=== PATIENT | female | born 1955 | race Caucasian/White ===

== ENCOUNTER 2018-09-18 09:39 | Outpatient (REF) | payer OTHER, SELFPAY ==
--- NOTE | 2018-09-18 09:10 | SKI_PTH ---
PATIENT: Donna Leggett LOC: N U#:[id number] AGE/SX: 63/F ROOM: RE09/18/[address]: Brody Rivas DO : 1955 BED: DIS: 09/18/2018 SPEC #: [id number] RECD: 09/18/18 18:11 STATUS: ANNABEL REGabriella #: [id number] BHAVANI: 09/18/18 09:[address]: Brody Rivas DEPT: Surgical Specimen RECD BY: Ysiel Monique ENTERED: 09/18/18 18:11 SP TYPE: TERESSA GREENE DR: Kinga Zhang MD Tissues: 1 - SKIN BIOPSY(SHAVE/PUNCH) Procedures: SKIN LEVEL 4 Comments: [id number]
== END 2018-09-18 09:59 ==
LOC: LBN 09:39
PROVIDERS: PCP Family Medicine; Visit Provider Otolaryngology Otolaryngology/Facial Plastic Surgery
DX: D22.39 Melanocytic nevi of other parts of face (principal)
CPT/HCPCS: 88305

== ENCOUNTER 2018-10-12 11:50 | Outpatient (CLI) | payer OTHER, SELFPAY ==
--- NOTE | 2018-10-12 11:30 | DI.RAD_ITS ---
SYMPTOMS/DIAGNOSIS: PAIN LT UPPER LATERAL RIBS/NEXT TO UPPER BREAST, R07.81 PA AND LATERAL CHEST AND LEFT RIBS: PA and lateral views of the chest and two additional views of the ribs were obtained. A BB marker is placed over the anterolateral lower ribs. The heart is not enlarged and the lungs are clear and well expanded. No pneumothorax or pleural effusion. No rib abnormality seen. CONCLUSION: Negative examination of the chest and ribs.
== END 2018-10-12 12:10 ==
PROVIDERS: PCP Family Medicine; Visit Provider Family Medicine
DX: R07.81 Pleurodynia (principal)
CPT/HCPCS: 71046; 71100

== ENCOUNTER 2018-12-26 00:58 | Outpatient (CLI) | payer OTHER, SELFPAY ==
--- NOTE | 2018-12-26 07:30 | DI.MAMMO_ITS ---
SYMPTOM/DIAGNOSIS: SCREENING, Z12.31 MAMMOGRAMS: Mammograms were interpreted according to the usual protocol including computer analysis with CAD system, tomosynthesis and C view imaging. Comparison with prior examinations. Breast density B. No suspicious masses or microcalcifications are seen. There is no definite evidence of malignancy. IMPRESSION: Negative mammogram. Routine screening is recommended. Category I. MQSA ASSESSMENT OF FINDINGS: Negative. Category 1. Patient will receive a letter notifying them of these results. BI-RADS category B. There are scattered areas of fibroglandular density.
== END 2018-12-26 01:18 ==
PROVIDERS: PCP Family Medicine; Visit Provider Family Medicine
DX: Z12.31 Encounter for screening mammogram for malignant neoplasm of breast (principal)
CPT/HCPCS: 77063; 77067

== ENCOUNTER 2019-12-31 01:37 | Outpatient (CLI) | payer OTHER, SELFPAY ==
--- NOTE | 2019-12-31 06:30 | DI.MAMMO_ITS ---
EXAM: MG MAMMO SCREENING CLINICAL HISTORY: screening,Z12.39 TECHNIQUE: Bilateral full field digital CC and MLO mammographic images were obtained with 3D tomosyn thesis and utilizing computer aided detection (CAD). COMPARISON: Available for comparison. FINDINGS: Masses/Architectural Distortion: None seen. Microcalcifications: No suspicious pleomorphic-type are seen. Skin Thickening/Nipple Retraction: None. IMPRESSION: 1. No significant interval change with no specific features of malignancy noted. 2. Unless there is more urgent need, screening mammography is recommended, as per [employer] guidelines. BI-RADS Category 1 - Negative Breast Density - Category B - Scattered areas of fibroglandular density A negative radiographic report should not delay biopsy if a dominant or clinically suspicious mass is present. Up to ten percent of cancers are not identified on mammography. A negative report may reinforce clinical impression. Adenosis and dense breasts may obscure an underlying neoplasm. False positive reports average 6 to 10%. Patient will receive a letter notifying them of these results.
== END 2019-12-31 01:57 ==
PROVIDERS: PCP Family Medicine; Visit Provider Family Medicine
DX: Z12.31 Encounter for screening mammogram for malignant neoplasm of breast (principal)
CPT/HCPCS: 77063; 77067

== ENCOUNTER 2020-03-20 10:43 | Outpatient (CLI) | payer OTHER, SELFPAY ==
--- NOTE | 2020-03-20 11:23 | DI.RAD_ITS ---
EXAM: XR ANKLE LT COMPLETE CLINICAL HISTORY: left ankle injury, S99.912A, PAIN TECHNIQUE: COMPARISON: No exams were available for comparison FINDINGS: Three views were obtained. There is soft tissue swelling adjacent to the lateral malleolus. There i s a probable accessory ossicle of the tip of the fibula, there is also probably a nondisplaced fibula r tip fracture. No other fracture seen involving the bones of the ankle or hindfoot. IMPRESSION: Fibular tip fracture as described above, nondisplaced. RADIATION DOSE DELIVERED: Total DLP
== END 2020-03-20 11:03 ==
PROVIDERS: PCP Family Medicine; Visit Provider Nurse Practitioner Family
DX: S82.492A Other fracture of shaft of left fibula, initial encounter for closed fracture (principal)
CPT/HCPCS: 73610

== ENCOUNTER 2020-09-03 04:32 | Outpatient (CLI) | payer OTHER, SELFPAY ==
[2020-09-03 09:33] LABS: Abs Immature Grans 0.01 10^3/uL (0.0-0.06); Absolute Basophil Count 0.13 10^3/uL (0.0-0.2); Absolute Eosinophil Count 0.24 10^3/uL (0.0-0.7); Absolute Lymphocyte Count 2.16 10^3/uL (1.2-3.4); Absolute Monocyte Count 0.52 10^3/uL (0.1-0.8); Absolute Neutrophil Count 4.74 10^3/uL (1.2-6.7); Basophils % 1.7; Eosinophils % 3.1; HCT 36.2 % (36.0-46.0); HGB 11.8 g/dL (11.2-15.7); Immature Grans % 0.1; Lymphocytes % 27.7; MCH 28.6 pg (27.0-33.0); MCHC 32.6 % (32.0-36.0); MCV 87.7 fL (80-95); MPV 10.8 fL (8.0-11.0); Monocytes % 6.7; Neutrophils % 60.7; Nucleated RBC 0 %; Platelet Count 246 10^3/uL (130-400); RBC 4.13 10^6/uL (3.93-5.22); RDW 13.2 % (11.7-14.6); RDW-SD 42.5 fL
[2020-09-03 10:19] LABS: ALT 22 U/L (14-59); AST 16 U/L (15-37); Albumin 3.8 g/dL (3.4-5.0); Alkaline Phosphatase 96 U/L (46-116); Anion Gap 9.9 mmol/L (3-11); BUN 12 mg/dL (7-18); Bilirubin, Total 0.5 mg/dL (0.2-1.0); C-Reactive Protein 0.09 mg/dL (0.0-0.3); CO2 27.1 mmol/L (21.0-32.0); CREATININE 0.7 mg/dL (0.55-1.02); Calcium 9.2 mg/dL (8.5-10.1); Chloride 102 mmol/L (98-107); Glucose 94 mg/dL (74-106); Potassium 4.2 mmol/L (3.5-5.1); Sodium 139 mmol/L (136-145); Total Protein 7.5 g/dL (6.4-8.2); Uric Acid 3.9 mg/dL (2.6-6.0)
[2020-09-03 16:32] LABS: Rheumatoid Factor <8.6 IU/mL (<12.0)
[2020-09-03 21:30] LABS: ESR 39 mm/hr (<or=30)
== END 2020-09-03 04:33 | disposition home or self-care (01) ==
LOC: LBO 04:32
PROVIDERS: PCP Family Medicine; Visit Provider Family Medicine
DX: M25.59 Pain in other specified joint (principal)
CPT/HCPCS: 36415; 80053; 85652; 84550; 85025; 86140; 86431

== ENCOUNTER 2020-09-17 01:41 | Outpatient (CLI) | payer OTHER, SELFPAY ==
--- NOTE | 2020-09-17 07:15 | DI.DEXA_ITS ---
EXAM: XR DEXA BONE DENSITY W/WO JAJA CLINICAL HISTORY: recent fx post minimal trauma/screening FOR OSTEOPOROSIS, Z13.820 TECHNIQUE: [employer] [place] C densitometer. Evaluation of the spine, left hip and left forearm. COMPARISON: No exams were available for comparison FINDINGS: The lateral view of the thoracic and lumbar spine shows no evidence of compression fractures. The flaquito ne mineral density measurements of the lumbar spine correspond to a total T-score of -2.5, in the ost eoporotic range. The bone mineral density measurements of the left hip correspond to a total T-score of -2.3 and a femoral neck T-score of -2.7, also in the osteoporotic range. The left forearm bone m ineral density measurements correspond to a T-score of the distal 3rd of -3.8, indicating osteoporosi s. IMPRESSION: Osteoporosis of the lumbar spine, left hip and left forearm.
== END 2020-09-17 02:01 ==
PROVIDERS: PCP Family Medicine; Visit Provider Family Medicine
DX: M81.0 Age-related osteoporosis without current pathological fracture (principal)
CPT/HCPCS: 77080

== ENCOUNTER 2020-10-15 04:29 | Outpatient (CLI) | payer OTHER, SELFPAY ==
[2020-10-15 09:10] LABS: ESR 5 mm//hr (0-30)
[2020-10-15 10:57] LABS: C-Reactive Protein < 0.05 mg/dL (0.0-0.3)
== END 2020-10-15 04:30 | disposition home or self-care (01) ==
LOC: LBO 04:29
PROVIDERS: PCP Family Medicine; Visit Provider Family Medicine
DX: M25.59 Pain in other specified joint (principal)
CPT/HCPCS: 36415; 85652; 86140

== ENCOUNTER 2021-01-05 01:06 | Outpatient (CLI) | payer OTHER, SELFPAY ==
--- NOTE | 2021-01-05 06:45 | DI.MAMMO_ITS ---
Exam(s) MAMMO SCREENING EXAM: MAMMO SCREENING CLINICAL HISTORY: screening,z12.39. TECHNIQUE: Bilateral full field digital CC and MLO mammographic images were obtained with 3D tomosyn thesis and utilizing computer aided detection (CAD). COMPARISON: Prior mammograms dating back to 2011, the most recent being December 2019. FINDINGS: There are no CAD designations There are no new spiculated masses nor malignant appearing microcalcification groups. There is no significant architectural distortion nor skin thickening-retraction. IMPRESSION: No radiographic evidence of malignancy. BI-RADS Category 1 - Negative Breast Density - Category B - Scattered areas of fibroglandular density Breast density Category C or D implies that the patient has dense breast tissue. Dense breast tissue can make it harder to find cancer on a mammogram. Dense breast tissue is also associated with an incr eased risk of breast cancer. This information about the result of the mammogram report was provided to the patient to raise their awareness. Use this report when you speak with the patient about their risks for breast cancer, which includes their family history. At that time, you may recommend additional screening tests (Ultrasoun d or MRI) as these tests may add significant information. A negative radiographic report should not delay biopsy if a dominant or clinically suspicious mass is present. Up to ten percent of cancers are not identified on mammography. A negative report may reinforce clinical impression. Adenosis and dense breasts may obscure an underlying neoplasm. False positive reports average 6 to 10%. Patient will receive a letter notifying them of these results.
== END 2021-01-05 01:26 ==
PROVIDERS: PCP Family Medicine; Visit Provider Family Medicine
DX: Z12.31 Encounter for screening mammogram for malignant neoplasm of breast (principal); R92.8 Other abnormal and inconclusive findings on diagnostic imaging of breast
CPT/HCPCS: 77063; 77067

== ENCOUNTER 2021-03-09 03:23 | Outpatient (CLI) | payer OTHER, SELFPAY ==
[2021-03-09 12:33] LABS: ESR 6 mm/hr (0-30)
[2021-03-09 14:02] LABS: C-Reactive Protein < 0.05 mg/dL (0.0-0.3)
[2021-03-10 09:05] LABS: Cyclic Citrullinated Peptide <2.5 U/mL (<5.0)
== END 2021-03-09 03:24 | disposition home or self-care (01) ==
LOC: LBO 03:23
PROVIDERS: PCP Family Medicine; Visit Provider Internal Medicine
DX: M35.3 Polymyalgia rheumatica (principal)
CPT/HCPCS: 36415; 85652; 86200; 86140

== ENCOUNTER 2021-05-08 02:30 | Outpatient (CLI) | payer OTHER, SELFPAY ==
[2021-05-08 11:31] LABS: Source Nasal/Nares
[2021-05-08 14:11] LABS: COVID-19 PCR Negative (Negative)
== END 2021-05-08 02:31 | disposition home or self-care (01) ==
LOC: LBO 02:30
PROVIDERS: PCP Family Medicine; Visit Provider Surgery
DX: Z20.822 Contact with and (suspected) exposure to COVID-19 (principal)
CPT/HCPCS: 87635

== ENCOUNTER 2021-05-11 08:59 | Day surgery (SDC) | payer OTHER, SELFPAY ==
--- NOTE | 2021-05-11 06:44 | W.COLOREPORT ---
Colonoscopy Report Date of procedure: 05/11/21 Pre-op diagnosis general: Colon Cancer Screening Post-op diagnosis procedure note: same Procedure: Colonoscopy Surgeon: Tierney Cat Anesthesia Type: General:No Airway (see anesthesdia record) Estimated blood loss (mL): 0 Pathology: none sent Complications: None Disposition: same day Indications: The patient is here for Colonoscopy pre-op. Her last screening was in 2010 and was unremarkable. She has no family history of colon cancer. She has not had any bowel habit changes. -Discussed colonoscopy bowel prep as well as the procedure. Discussed possible complications of the procedure to include bleeding, pain, perforation, missed small lesion/polyp, sore throat, aspiration and adverse reaction to the medications. Questions were answered to patient?s satisfaction. No guarantees were implied or given. Prep: Miralax/Dulcolax Procedure Start Time: 11:30 Procedure End Time: 11:51 Retraction Time: 9 minutes Findings: Normal colonoscopy Procedure Description: After informed consent was obtained the patient was taken to the procedure room and placed in a left decubitous position. Monitors were applied and a time out was done. The patients name, date of , procedure, allergies to medications and metal in their body was reviewed. The patient was then sedated. Once sedated and comfortable a rectal exam was done. External exam was normal. Internal exam revealed a normal sphincter tone and no palpable masses. The scope was then introduced and retro-flexed. No internal hemorrhoids, polyps or masses were identified on retro-flexion. The scope was then advanced to the cecum without difficulty. The ileocecal vlave and appendiceal orifice were identified. The prep was good. The scope was then slowly retracted over 9 minutes back into the rectum. There were no polyps. There was mild sigmoid diverticulosis noted. The scope was removed and the patient was woken up and taken back to Same day surgery in stable condition. The patient tolerated the procedure well and there were no immediate complications. Follow up: The patient should follow up as needed if they develop changes in bowel habits or other new gastrointestinal complaints.
--- NOTE | 2021-05-11 06:45 | W.PM.DSUDISC ---
Discharge Plan Disposition Patient Disposition: HOME Condition: Good Discharge Details Reason For Visit: Colonoscopy Attending Provider: Tierney Cat Primary Care Provider: Disha Rodriges Home Meds and New Rx's Prescriptions: Continued zolmitriptan 5 mg tablet 2.5 - 5 mg PO DIRECTED Qty: 9 RF: 4 alendronate 70 mg tablet 70 mg PO QWEEK Qty: 12 RF: 4 prednisone 1 mg tablet 1 mg PO DAILY RF: 0 Discharge Instructions Instructions: Diverticulosis (DC) Additional Instructions: Findings: Diverticulosis Follow up: as needed Please call if you develop: fevers >101.5 Nausea or Vomiting Abdominal pain that is not transient Rectal bleeding that is more then a tbsp A hard abdomen and inability to pass gas DAY SURGERY UNIT POST ENDOSCOPY INSTRUCTIONS Instructions for everyone who is given Anesthesia: For your safety, please do the following for the next 24 Hours: a. Do not drive or operate dangerous equipment b. Do not drink alcohol beverages or use any recreational drugs for the first 24 hours or while taking pain medications. The medications in your body may have a reaction that can be dangerous. c. Do not make any important decisions or sign any important papers 1. Generally there are no restrictions on your activity after a day or so has gone by, but you may feel a bit fatigued for a few days. 2. After you arrive home you may have a light meal and return to a normal diet as you can tolerate it without feeling sick to your stomach. 3. After surgery, you may feel pain or discomfort. This should be only transient, but if it persists please contact your doctor. 4. If there are any questions regarding the findings of your procedure, please feel free to contact your doctor. 6. If you are unable to contact your doctor with a problem, contact the hospital at [phone]. 7. Continue all your regular medications unless directed otherwise. I understand the above instructions and have no questions. Signature of Patient or Responsible Adult Escort Date/Time Name of Responsible Adult Escort Signature of Nurse Date/Time Activity:: Activity as Tolerated Diet:: high fiber Discharge Orders Discharge Orders: Discharge Order (Routine); Ordered 05/11/21 Ordered By: Tierney Cat
[2021-05-11 09:24] VITALS: BP 98/59; PULSE 95; RESP 16; TEMP 36.4; O2SAT 99
[2021-05-11] MEDS: Lactated Ringers 1,000 ML 80 ML IV ×2 (09:55→11:30)
--- NOTE | 2021-05-11 10:16 | W.ANESPRE ---
General Info Date of Service Date Performed: 05/11/21 Height: 5 ft 5.5 in Weight: 62.4 kg Body Mass Index (BMI): 22.5 Surgical Procedure: Operation Date: 05/11/21 11:05 Proposed Procedures Side Surgeon p Colonoscopy Tierney Cat MD Meds Allergies and Home Medications Allergies Allergy/AdvReac Type Severity Reaction Status Date / Time No Known Allergies Allergy Verified 05/11/21 09:30 Home Medication Medication Instructions Recorded alendronate 70 mg tablet 70 mg PO QWEEK #12 tab 10/07/20 zolmitriptan 5 mg tablet 2.5 - 5 mg PO DIRECTED #9 tab 12/03/20 prednisone 1 mg PO DAILY 05/11/21 Current Visit Medications: Current Medications Generic Name Dose Route Start Last Admin Trade Name Freq PRN Reason Stop Dose Admin Hyoscyamine Sulfate 0.125 mg 05/11/21 06:45 Hyoscyamine 0.125 Mg Sl/Oral/Chew SL DIRECTED PRN Ringer's Solution 1,000 mls @ 80 mls/hr 05/11/21 06:00 05/11/21 09:55 IV 05/12/21 23:59 80 mls/hr INFUSION NATHEN Administration IV Miscellaneous Supplies 1 each 05/11/21 06:00 Iv Access IV 05/12/21 23:59 DIRECTED NATHEN Ondansetron HCl 4 mg 05/11/21 06:45 Ondansetron 4 Mg/2 Ml Vial IVP Q4H PRN PRN Nausea / Vomiting Sodium Chloride 0 ml 05/11/21 06:00 Normal Saline Flush 10 Ml Syr IV 05/12/21 23:59 PRN PRN Sodium Chloride 0 ml 05/11/21 06:00 Normal Saline 10 Ml Vial IJ 05/12/21 23:59 DIRECTED PRN Sterile Water 0 ml 05/11/21 06:00 Water,Injection,Sterile 10 Ml Vial IJ 05/12/21 23:59 DIRECTED PRN PFSH Active Problems Active Problems: Problem Status Onset Code Rosacea L71.9 Onychomycosis B35.1 Headache R51 Atrophic vaginitis N95.2 Left ankle pain M25.572 Polyarthralgia M25.50 Osteoporosis M81.0 Urinary incontinence, mixed N39.46 PMR (polymyalgia rheumatica) M35.3 Medical History Active Problem List Rosacea (Chronic) Onychomycosis (Chronic) Headache (Chronic) Atrophic vaginitis (Chronic) Left ankle pain (Acute) Polyarthralgia (Acute) Osteoporosis (Chronic) Urinary incontinence, mixed (Acute) PMR (polymyalgia rheumatica) (Acute) Surgical History Surgical History (Updated 05/11/21 @ 09:22 by Gosia Lyles) Hx of colonoscopy Ligation of fallopian tube Tobacco Smoking/Tobacco Use Status: Former Tobacco Use Passive smoking exposure: Yes Second hand exposure: Yes Alcohol Alcohol Intake: current Alcohol intake frequency: a few times a month Alcohol type: beer and hard liquor Substance Use Substance use: Occasionally Substance use type: marijuana Details: alcohol: t-4, glass:marijuana: t-4, hit Vital Signs and Lab Results Vital Signs Most Recent Vital Signs in EMR: Most Recent Vital Signs Temp Pulse Resp BP Pulse Ox 36.4 C L 95 H 16 98/59 L 99 05/11/21 09:24 05/11/21 09:24 05/11/21 09:24 05/11/21 09:24 05/11/21 09:24 Lab Results Blood Type / Crossmatch: No Data to Display Complete Blood Count: No Data to Display Complete Metabolic Panel: No Data to Display Liver Function Panel: No Data to Display Coagulation Panel: No Data to Display Cardiac Panel: No Data to Display Arterial Blood Gas: No Data to Display Venous Blood Gas: No Data to Display Pancreas Panel: No Data to Display Thyroid Panel: No Data to Display Infectious Disease: Coronavirus (COVID-19)(PCR) Negative (Negative) 05/08/21 07:23 05/08/21 Coronavirus 2019 Source Nasal/Nares 05/08/21 07:23 05/08/21 Blood Cultures: No Data to Display Toxicology Panel: No Data to Display Anesthesia Assessment and Plan Anesthesia History Personal History: No History of Anesthesia Complications Family History: No Family History of Anesthesia Complications Exercise Tolerance Exercise Tolerance: Metabolic Equivalents>4 Pertinent Negatives Pertinent Negatives: No Symptoms of GERD, No Major Cardiovascular Symptoms or Complaints and No Major Pulmonary Symptoms or Complaints Cardiac & Pulmonary Exam Cardiac Exam: Normal S1/S2 Heart Sounds Pulmonary Exam: Clear Bilateral Breath Sounds Implantable Cardiac Device Does patient have a Pacemaker or an ICD?: No Airway Exam Known Difficult Airway: No Mallampati Class: 2 Mouth Opening: Normal (> 3cm) Thyromental Distance: Greater than 3 cm Neck Range of Motion: Full ROM Neck Circumference: Normal Teeth Condition: Normal Dentition and Removable Dentures/Plates Upper ASA Classification ASA Score: ASA 2 Emergency Case?: No NPO Status NPO Status: NPO Clears >2 hours, Solids >8 hours Anesthesia Plan Resuscitation Status: Full Code Anesthesia Technique: General Anesthesia Airway Planned: Natural Airway Monitors Used: Standard Monitors
[2021-05-11 10:18] VITALS: BMI 22.5
[2021-05-11 12:00] VITALS: BP 86/63; PULSE 69; RESP 18; TEMP 36.1; O2SAT 94
[2021-05-11 12:36] VITALS: BP 101/67; PULSE 68; RESP 16; TEMP 36.5; O2SAT 97
--- NOTE | 2021-05-11 12:45 | W.ANESPOSTOP ---
Postoperative Evaluation Date, Time and Location Date Performed: 05/11/21 Time Performed: 12:46 Patient Location: Day Surgery Unit Vital Signs Most Recent Imported Vital Signs: Most Recent Vital Signs Temp Pulse Resp BP Pulse Ox 36.5 C 68 16 101/67 97 05/11/21 12:36 05/11/21 12:36 05/11/21 12:36 05/11/21 12:36 05/11/21 12:36 Pain Score Most Recent Pain Score: Most Recent Pain Score Pain Level 0 05/11/21 12:36 Assessment Mental Status: Awake (Alert & Oriented to Patient Baseline) Airway and Respiratory Function: Patent airway with normal (patient baseline) respiratory exam Cardiovascular Function: Hemodynamically Stable Hydration Status: Adequately Hydrated Nausea & Vomiting: No Nausea or Vomiting Pain: Pt. Denies Any Pain Peripheral Nerve Block: Patient did not receive a nerve block
== END 2021-05-11 13:10 | disposition home or self-care (01) ==
LOC: SUR 08:59
PROVIDERS: PCP Family Medicine; Visit Provider Surgery
PROC: 0DJD8ZZ Inspection of Lower Intestinal Tract, Via Natural or Artificial Opening Endoscopic (ICD-10-PCS; CPT 45378; principal; 2021-05-11 11:00)
DX: Z12.11 Encounter for screening for malignant neoplasm of colon (principal); K57.30 Diverticulosis of large intestine without perforation or abscess without bleeding
CPT/HCPCS: 45378; J2001

== ENCOUNTER 2021-05-19 02:48 | Outpatient (CLI) | payer OTHER, SELFPAY ==
[2021-05-19 12:25] LABS: ESR 10 mm/hr (0-30)
[2021-05-19 13:25] LABS: C-Reactive Protein < 0.05 mg/dL (0.0-0.3)
== END 2021-05-19 02:49 | disposition home or self-care (01) ==
LOC: LBO 02:48
PROVIDERS: PCP Family Medicine; Visit Provider Internal Medicine
DX: M35.3 Polymyalgia rheumatica (principal)
CPT/HCPCS: 36415; 85652; 86140

== ENCOUNTER 2021-12-08 12:38 | Outpatient (CLI) | payer OTHER, SELFPAY ==
--- OUTSIDE RECORDS SUMMARY | 2021-12-08 13:01 | XMS_ITS | Encounter Summary ---
:1955 Author Organization [facility] Address [address] [place] [address] Care Team Providers Name Role Phone Unknown, Provider Primary Care Provider Encounter Details Date Type Department Care Team Description 02/11/2021 Lab Requisition [facility] Outr Resulting Lab, Pathology & Laboratory Provider [facility] [address] [place] [address] Social History Tobacco Use Types Packs/Day Years Used Date Never Assessed Sex Assigned at Date Recorded Not on file documented as of this encounter Plan of Treatment Not on filedocumented as of this encounter Procedures Procedure Name Priority Date/Time Associated Diagnosis Comme nts COVID-19 TEST [facility] Today 02/11/2021 7:45 EDT LAB PCR COVID-19 TESTING Routine 02/11/2021 7:45 EDT Resu lts for this procedure are i n the results section. documented in this encounter Results COVID-19 TEST [facility] LAB PCR (02/11/2021 7:45 EDT) Specimen Swab - Entire nasopharynx (body structur e) Performing Organization Address City/State/ZIP Code Phon e Number [facility] [address] [place] [address] SERVICES COVID-19 TESTING (02/11/2021 7:45 EDT) COVID-19 rt-PCR Negative Negative [facility] MED[facility] Result Comment: [facility] This test has not been FDA c leared or approved. This test has been authorized by FDA under an EUA for use by authorized laboratories. This test has been authorized only for detection of nucleic acid fro SERVICES m 2018-nCo, not for any oth er viruses or pathogens. This test is only authorized for the duration of the declaration that circumstances exist justifying the authorization of emergency use of in vitro d iagnostic tests for detectio n and/or diagnosis of 2019-nCoV under section 564(b)(1) of Act, 21 U.S.C ?? 360bbb-3(b) (1), unless the authorization is terminated or revoked sooner. Negative results do not prec lude 2019-nCoV infection and should not be used as the sole basis for treatment or other patient management decisions. Negative results must be combined with clinical observa tions, patient history, and epidemiological informatio n. Performed on the Mi[employer] Fusion instrument Performing Lab [place] [facility] Lab [facility] SERVICES Specimen Swab Performing Organization Address City/State/ZIP Code Phon e Number [facility] [address] [place] [address] SERVICES documented in this encounter Visit Diagnoses Not on filedocumented in this encounter Care Teams Political Director Relationship Specialty Start Date End Date Unknown, Provider, PCP - General 04/18/15 documented as of this encounter
--- OUTSIDE RECORDS SUMMARY | 2021-12-08 13:01 | XMS_ITS | Encounter Summary ---
:1955 Author Organization [facility] Address [address] [place] [address] Care Team Providers Name Role Phone Unknown, Provider Primary Care Provider Encounter Details Date Type Department Care Team Description 10/11/2016 Results Only [facility]- Sherry Flores MD [phone] [place] [phone] (Wo rk) Social History Tobacco Use Types Packs/Day Years Used Date Never Assessed Sex Assigned at Date Recorded Not on file documented as of this encounter Plan of Treatment Not on filedocumented as of this encounter Procedures Procedure Name Priority Date/Time Associated Diagnosis Comme nts PAP TEST- RESULT Routine 10/11/2016 0:00 EDT Resu lts for this ONLY procedure are i n the results section. documented in this encounter Results PAP TEST- RESULT ONLY (10/11/2016 0:00 EDT) Pathology Report: CYTOPATHOLOGY REPORT [facility] Reports generated via electronic interface contain yvonne ginal data; SERVICES however they are lacking the format of the original re port. Caution should be taken when reading/interpreting unfo rmatted reports. Name: ? DONNA LEGGETT ? Accession #: ? [id number] ? : ? 1955 (Age: 61 ) ??F ?Collect Date: ? 2016 ? Location: ? [facility] ? Receive Date: ? 7 ? Provider: SHERRY RIDDLE MD Copy to: ? Final Report SPECIMEN ADEQUACY ? Satisfactory for Evaluation - transformation zone component present GENERAL CATEGORIZATION ? Negative for Intraepithelial Lesion or Malignan cy ?? Specimen/Source: ??Pap Test, Cervix/Endocervix, ThinPr ep Imaging System with manual evaluation Document reviewed and electronically signed by: ? Arelis Taveras, CT(ASCP)(IAC) ? Report ??Date: 10/20/2016 11:07 HPV with Pap Test ? Date Ordered: ? 10/20/2016 ? Status: ?? Signed Out ?Date Complete: ? 10/21/2016 ? By: ??Sy stem Interface ? Date Reported: ? 10/21/2016 ? Interpretation RESULT: Negative for HPV. No E6 or E7 mRNA is detected from HPV types 16,18,31,3 3,35, 39,45,51,52,56,58,59,66, and 68 by mold shifter media zeeshan amplification. Comments Document reviewed and electronically signed by: ? System Interface ? Report date: 10/21/2016 By the signature above, the attending physician certif ies that he/she has personally conducted a gross and/or microscopic examin ation of the described specimens and rendered or confirmed the above diagnosi s. End of Report Specimen Performing Organization Address City/State/ZIP Code Phon e Number [facility] [address] [place] [address] SERVICES documented in this encounter Visit Diagnoses Not on filedocumented in this encounter Care Teams Speech Therapy Director Relationship Specialty Start Date End Date Unknown, Provider, PCP - General 04/18/15 documented as of this encounter
--- OUTSIDE RECORDS SUMMARY | 2021-12-08 13:01 | XMS_ITS | Encounter Summary ---
:[address] [facility] Address [address] [place] [address] Care Team Providers Name Role Phone Unavailable Primary Care Provider Unavailable Encounter Details Date Type Department Care Team Description 08/02/2013 Results Only [facility] Laboratory Anne Mohan am, PA Services - [place] All en [address] [address] Social History Tobacco Use Types Packs/Day Years Used Date Never Assessed Sex Assigned at Date Recorded Not on file documented as of this encounter Plan of Treatment Not on filedocumented as of this encounter Procedures Procedure Name Priority Date/Time Associated Diagnosis Comme nts PAP TEST- RESULT Routine 08/02/2013 0:00 EST Resu lts for this ONLY procedure are i n the results section. documented in this encounter Results PAP TEST- RESULT ONLY (08/02/2013 0:00 EST) Pathology Report: CYTOPATHOLOGY REPORT [facility] Reports generated via electronic interface contain yvonne ginal data; however they are lacking the format of the original re port. Caution should be taken when reading/interpreting unfo rmatted reports. Name: ? DONNA LEGGETT ? Accession #: ? [id number] ? : ? 1955 (Age: 58) ??F ?Collect Da te: ? 08/02/2013 ? Location: ? [facility] ? Receive Date: ? 014 ? Provider: JANEY RIVERA Copy to: ? Final Report SPECIMEN ADEQUACY ? Satisfactory for Evaluation - transformation zone component present GENERAL CATEGORIZATION ? Negative for Intraepithelial Lesion or Malignan cy ?? Last Menstrual Period: 5+ years Hormonal/Contraceptive status: Yes Specimen/Source: ??Pap Test, Cervix/Endocervix, ThinPr ep Imaging System with manual evaluation Document reviewed and electronically signed by: ? Teresa Dickens, [place](ASCP) ? Report ??Date: 08/09/2013 12:55 HPV with Pap Test ? Date Ordered: ? 08/09/2013 ? Status: ?? Signed Out ?Date Complete: ? 08/13/2013 ? By: ??S ystem Interface ? Date Reported: ? 08/13/2013 ? Interpretation RESULT: Negative for HPV. No E6 or E7 mRNA is detected from HPV types 16,18,31,3 3,35, 39,45,51,52,56,58,59,66, and 68 by expediter media zeeshan amplification. Comments Document reviewed and electronically signed by: ? System Interface ? Report date: 08/13/2013 By the signature above, the attending physician certif ies that he/she has personally conducted a gross and/or microscopic examin ation of the described specimens and rendered or confirmed the above diagnosi s. End of Report Specimen Performing Organization Address City/State/ZIP Code Phon e Number [facility] [address] [place] [address] SERVICES [facility] [address] [place] [address] documented in this encounter Visit Diagnoses Not on filedocumented in this encounter
--- OUTSIDE RECORDS SUMMARY | 2021-12-08 13:01 | XMS_ITS | Encounter Summary ---
:1955 Author Organization [facility] Address [address] [place] [address] Care Team Providers Name Role Phone Unknown, Provider Primary Care Provider Encounter Details Date Type Department Care Team Description 04/10/2021 Lab Requisition [facility] Outr Resulting Lab, Pathology & Laboratory Provider [facility] [address] [place] [address] Social History Tobacco Use Types Packs/Day Years Used Date Never Assessed Sex Assigned at Date Recorded Not on file documented as of this encounter Plan of Treatment Not on filedocumented as of this encounter Procedures Procedure Name Priority Date/Time Associated Diagnosis Comme nts COVID-19 TEST [facility] Today 04/10/2021 7:30 EDT LAB PCR COVID-19 TESTING Routine 04/10/2021 7:30 EDT Resu lts for this procedure are i n the results section. documented in this encounter Results COVID-19 TEST [facility] LAB PCR (04/10/2021 7:30 EDT) Specimen Swab - Entire nasopharynx (body structur e) Performing Organization Address City/State/ZIP Code Phon e Number [facility] [address] [place] [address] SERVICES COVID-19 TESTING (04/10/2021 7:30 EDT) COVID-19 rt-PCR Negative Negative [facility] Result Comment: CENTER LABORATORY [...] and epidemiological informatio n. Performed on the [employer] News[employer] Fusion instrument Performing Lab [place] [facility] Lab [facility] SERVICES Specimen Swab Performing Organization Address City/State/ZIP Code Phon e Number [facility] [address] [place] [address] SERVICES documented in this encounter Visit Diagnoses Not on filedocumented in this encounter Care Teams Bear Keeper Relationship Specialty Start Date End Date Unknown, Provider, PCP - General 04/18/15 documented as of this encounter
--- OUTSIDE RECORDS SUMMARY | 2021-12-08 13:01 | XMS_ITS | Encounter Summary ---
:1955 Author Organization [facility] [place] [address] Care Team Providers Name Role Phone Kinga Zhang MD Primary Care Provider Encounter Details Date Type Department Care Team Description 12/19/2020 Telephone [place] [facility] [place] [address] Social History Tobacco Use Types Packs/Day Years Used Date Never Smoker Smokeless Tobacco: Never Used Sex Assigned at Date Recorded Female 05/14/2021 11:47 AM EST documented as of this encounter Miscellaneous Notes Telephone Encounter - Lisa Sánchez - 12/19/2020 9:59 AM EDT LM to schedule new patient appt from referral. Graded a B- documented in this encounter Plan of Treatment Not on filedocumented as of this encounter Visit Diagnoses Not on filedocumented in this encounter Care Teams Flue Blower Relationship Specialty Start Date End Date Kinga Zhang MD PCP - General Family Medicine 09/07/[address] [place], [place] [id number] documented as of this encounter
--- OUTSIDE RECORDS SUMMARY | 2021-12-08 13:01 | XMS_ITS | Clinical Summary ---
:1955 Author Organization [facility] Address [address] [place] [address] Care Team Providers Name Role Phone Unknown, Provider Primary Care Provider Social History Tobacco Use Types Packs/Day Years Used Date Never Assessed Sex Assigned at Date Recorded Not on file Plan of Treatment Health Maintenance Due Date Last Done Comments Hepatitis C Screen 1955 COVID-19 Vaccine (1) 1965 Fall Risk Screening 2018 Care Teams Audio Video Repairer Relationship Specialty Start Date End Date Unknown, Provider, PCP - General 04/18/15
--- OUTSIDE RECORDS SUMMARY | 2021-12-08 13:01 | XMS_ITS | Clinical Summary ---
:1955 Author Organization [facility] [place] [address] Care Team Providers Name Role Phone Kinga Zhang MD Primary Care Provider Allergies No known active allergies Medications Medication Sig Dispensed Refills Start Date End Date Status alendronate (Fosamax) 70 once a week. 0 12/22/2020 Active mg Tablet predniSONE (Deltasone) 5 0 12/03/2020 Active mg Tablet ZOLMitriptan (ZOMIG) 5 0 03/04/2021 Active mg Tablet cholecalciferol, Vitamin Take 200 Units 0 Active D3, (cholecalciferol, by mouth. Vitamin D3,) 50 mcg (2,000 unit) Capsule Immunizations Name Administration Dates Next Due Pneumococcal Polyvalent 23 11/12/1999 Td, adult 02/03/2004 Tuberculin Skin Test, PPD 04/12/2005, 03/16/2004, 02/25/2003 Social History Tobacco Use Types Packs/Day Years Used Date Former Smoker Smokeless Tobacco: Never Used Sex Assigned at Date Recorded Female 05/14/2021 11:47 AM EST Last Filed Vital Signs Vital Sign Reading Time Taken Comments Blood Pressure 133/70 03/05/2021 10:39 AM EDT Pulse 74 03/05/2021 10:39 AM EDT Temperature 36.9 ??C (98.4 ??F) 03/05/2021 10:39 AM EDT Respiratory Rate - - Oxygen Saturation 100% 03/05/2021 10:39 AM EDT Inhaled Oxygen Concentration - - Weight 65.8 kg (145 lb) 03/05/2021 10:39 AM EDT Height 166.4 cm (5' 5.5) 03/05/2021 10:39 AM EDT Body Mass Index 23.76 03/05/2021 10:39 AM EDT Plan of Treatment Health Maintenance Due Date Last Done Comments Covid-19 Vaccine (#1) 1958 Hepatitis C Screening 1971 Tdap adult 01/20/1972 Breast Cancer Share Decision Needed 1993 Colonoscopy 1998 Breast Cancer screening 2003 Zoster vaccine (1 of 2) 2003 Advance Directive 01/20/2008 Tetanus vaccine 02/02/2014 02/03/2004 Bone Density Scan 2018 Pneumoccocal Vaccine: 65+ (1 - PCV) 2018 11/12/1999 Influenza (Flu) vaccine (1 of 1 - Influenza standard 02/11/2021 series) Insurance Payer Benefit Plan / Subscriber ID Effective Dates Phone Addre ss Type Group HEALTH PLANS HEALTH PLANS [id number] 2018-Myriam [phone] [id number] [place] [address] Care Teams Hydraulic Chair Assembler Relationship Specialty Start Date End Date Kinga Zhang MD PCP - General Family Medicine 09/07/[address] [place], [place] [address]
--- OUTSIDE RECORDS SUMMARY | 2021-12-08 13:01 | XMS_ITS | Encounter Summary ---
:1955 Author Organization [facility] Address [address] [place] [address] Care Team Providers Name Role Phone Unavailable Primary Care Provider Unavailable Encounter Details Date Type Department Care Team Description 02/11/2004 Results Only [facility] - Soraya Hernandez MD [employer] [address] [place] [address] [place] [address] Social History Tobacco Use Types Packs/Day Years Used Date Never Assessed Sex Assigned at Date Recorded Not on file documented as of this encounter Plan of Treatment Not on filedocumented as of this encounter Procedures Procedure Name Priority Date/Time Associated Diagnosis Comme [facility] SURGICAL PATHOLOGY Routine 02/11/2004 0:00 EDT Re sults for this procedure are i n the results section. documented in this encounter Results SURGICAL PATHOLOGY (02/11/2004 0:00 EDT) Pathology Report: SURGICAL PATHOLOGY REPORT [facility] Reports generated via electronic interface contain yvonne ginal data; LAB however they are lacking the format of the original re port. Caution should be taken when reading/interpreting unfo rmatted reports. Name: ? DONNA LEGGETT ? Accession #: ? [id number] ? : ? 1955 (Age: 49) ??F ? Collect Date: ? 02/11/2004 ? Location: ? [facility] ? Receive Date: ? 004 ? Provider: ESTRELLA HERNANDEZ MD Copy to: JANEY RIVERA ? Final Pathologic Diagnosis: ? Endocervical, polyp, biopsy: - Benign endocervical polyp. Document reviewed and electronically signed by: Ike Moon MD Report ??Date: 02/12/2004 13:10 By the signature above, the attending physician certif ies that he/she has personally conducted a gross and/or microscopic examin ation of the described specimens and rendered or confirmed the above diagnosi s. Specimen(s) Received: ? Endocervical polyp Clinical History: ? Endocervical polyp Gross Description: ? Received in formalin labelled Oleksandr and end ocervical polyp is a torres-red polypoid 1.2 x 1.0 x 0.4 cm soft tissue. ??There is a minimal amount of attached mucinous material. ??The specimen is entirely submitted in one cassette. /[facility] End of Report Specimen Performing Organization Address City/State/ZIP Code Phon e Number [facility] [address] [place] [address] SERVICES [facility] [address] [place] [address] documented in this encounter Visit Diagnoses Not on filedocumented in this encounter
--- OUTSIDE RECORDS SUMMARY | 2021-12-08 13:01 | XMS_ITS | Encounter Summary ---
:1955 Author Organization [facility] Address [address] [place] [address] Care Team Providers Name Role Phone Unavailable Primary Care Provider Unavailable Encounter Details Date Type Department Care Team Description 01/05/2010 Results Only [facility] Anne Mohan am, PA Services - [place] All en [address] [address] Social History Tobacco Use Types Packs/Day Years Used Date Never Assessed Sex Assigned at Date Recorded Not on file documented as of this encounter Plan of Treatment Not on filedocumented as of this encounter Procedures Procedure Name Priority Date/Time Associated Comments Diagnosis HPV DETECTION, HIGH Routine 01/05/2010 15:13 Resu lts for this RISK TYPES EDT procedure are i n the results section. CYTOPATHOLOGY Routine 01/05/2010 0:00 Results for this EDT procedure are i n the results section. documented in this encounter Results HUMAN PAPILLOMA VIRUS DNA TEST (01/05/2010 15:13 EDT) Specimen Description Cervix, ThinPrep [facility] vial Result Negative for HPV [facility] types 16, 18, 31, 33, 35, 39, 45, 51, 52, 56, 58, 59, and 68. Report Status Final [facility] 01/12/2010 Specimen Performing Organization Address City/State/ZIP Code Phon e Number [facility] [address] [place] [address] SERVICES [facility] [address] [place] [address] CYTOPATHOLOGY (01/05/2010 0:00 EDT) Pathology Report: CYTOPATHOLOGY REPORT ? [facility] ? LAB Reports generated via electr onic interface contain original data; ? however they are lacking the format of the original report. ? Caution should be taken when reading/interpreting unformatted reports. ? Name: ? DONNA LEGGETT ? Accession #: ? [id number] ? : ? 1955 (Age: 54) ??F ?Collect Date: ? 01/05/2010 ? Location: ? [facility] ? Receive Date: ? 01/06/2010 ? Provider: ?JANEY SIM ON PA ? Copy to: ? Specimen/Source: ? Pap Test, Cervix/Endocervix, ThinPrep Imaging System ? with manual evaluation ? Last Menstrual Period: ? 04/09 ? Other: ? HPVDX - HPV testing requeste d regardless of diagnosis on current ThinPrep Pap ?? test. ? SPECIMEN ADEQUACY ? Satisfactory for Eval uation ? - transformation zone compon ent present ? GENERAL CATEGORIZATION ? Negative for Intraepi thelial Lesion or Malignancy ? Document reviewed and electr onically signed by: ? Meagan Andrew, CT(ASCP ) ? Report Date: ??07/29/ 2010 09:13 ? End of Report ? Specimen Performing Organization Address City/State/ZIP Code Phon e Number [facility] [address] [place] [address] SERVICES [facility] [address] [place] [address] documented in this encounter Visit Diagnoses Not on filedocumented in this encounter
--- OUTSIDE RECORDS SUMMARY | 2021-12-08 13:01 | XMS_ITS | Encounter Summary ---
:1955 Author Organization [facility] Address [address] [place] [address] Care Team Providers Name Role Phone Unknown, Provider Primary Care Provider Encounter Details Date Type Department Care Team Description 03/09/2021 Lab Requisition [facility] Outr Resulting Lab, Pathology & Laboratory Provider [facility] [address] [place] [address] Social History Tobacco Use Types Packs/Day Years Used Date Never Assessed Sex Assigned at Date Recorded Not on file documented as of this encounter Plan of Treatment Not on filedocumented as of this encounter Procedures Procedure Name Priority Date/Time Associated Diagnosis Comme nts [facility] ANTIBODIES Routine 03/09/2021 12:20 EDT Resul ts for this procedure are i n the results section . documented in this encounter Results CCP ANTIBODIES (03/09/2021 12:20 EDT) Pathologist Sig nature CCP Antibodies <2.5 <5.0 U/mL [facility] Specimen Blood - Venous blood (substance) Performing Organization Address City/State/ZIP Code Phon e Number [facility] [address] [place] [address] SERVICES documented in this encounter Visit Diagnoses Not on filedocumented in this encounter Care Teams Dye Room Helper Relationship Specialty Start Date End Date Unknown, Provider, PCP - General 04/18/15 documented as of this encounter
--- OUTSIDE RECORDS SUMMARY | 2021-12-08 13:01 | XMS_ITS | Encounter Summary ---
:1955 Author Organization [place] [address] Care Team Providers Name Role Phone Kinga Zhang MD Primary Care Provider Reason for Visit Consultation (Routine) - Closed Specialty Diagnoses / Procedures Referred By Contact Refer red To Contact Rheumatology Diagnoses Polymyalgia rheumatica SECOND EPISODE Kinga Zhang MD [facility] Rhe[facility] [address] [address] [place], [place] [address] Referral ID Status Reason Start Date Expiration Date Visits V isits Requested Authorized [id number] Closed Consult, Test 12/03/2020 12/03/2021 [facility] PCP Updated and/or Approved Encounter Details Date Type Department Care Team Description 03/05/2021 Office Visit Rheumatology at [facility] Sourav Knox, Polymyalgia [facility] [place] [address] CENTER [phone] RHEUMATOLOGY [place], [place] [address] Social History Tobacco Use Types Packs/Day Years Used Date Former Smoker Smokeless Tobacco: Never Used Sex Assigned at Date Recorded Female 05/14/2021 11:47 AM EST documented as of this encounter Last Filed Vital Signs Vital Sign Reading [...] Mass Index 23.76 03/05/2021 10:39 AM EDT documented in this encounter Patient Instructions Patient InstructionsSourav Knox MD - 03/05/2021 11:00 AM EDT Images from the original note were not included. Continue prednisone 5 mg until labs are reviewed. Plan on tapering by 1 mg every 2 weeks Booster with Modern i Patient Education Temporal Arteritis: Care Instructions Your Care Instructions Temporal arteritis is an inflammation of blood vessels leading to your head and eyes. It usually affects people older than 50. It is more common in women. This condition is also called giant cell arteritis. Temporal arteritis causes a dull, throbbing headache on one side of the head around the eye or near the anabaptist. Sometimes the pain feels like stabbing or burning. It may also cause jaw pain and vision loss. Temporal arteritis is treated right away to prevent blindness or stroke. Your doctor will prescribe steroids that you take as pills. The steroids can also be given to you through a needle in your vein.Most symptoms should get better quickly, usually in 1 to 3 days. But if you have vision loss, it isn't likely to improve with treatment. You may need to take medicine for more than 2 years to prevent problems. Follow-up care is a castillo part of your treatment and safety. Be sure to make and go to all appointments, and call your doctor if you are having problems. It's also a good idea to know your test results and keep a list of the medicines you take. How can you care for yourself at home? ?? Take your medicines exactly as prescribed. Call your doctor if you have any problems with your medicine. ?? Take your steroid in the morning with food unless your doctor tells you otherwise. ?? Eat a balanced diet. ?? If you are on long-term steroids, take a daily vitamin containing calcium and vitamin D. This canprevent bone thinning caused by the steroids. ?? Get regular, gentle exercise to keep your bones strong and prevent bone loss. Walking is a good choice. Exercise can also help you cope with the illness. ?? Tell any health professional that cares for you that you are taking steroids. You may want to wear medical alert jewelry that lists this medicine. You can buy this at most [employer]. When should you call for help? Call 911 anytime you think you may need emergency care. For example, call if: ? You have twitching, jerking, or a seizure. ? You passed out (lost consciousness). ? You have symptoms of a stroke. These may include: ? Sudden numbness, tingling, weakness, or loss of movement in your face, arm, or leg, especially on only one side of your body. ? Sudden vision changes. ? Sudden trouble speaking. ? Sudden confusion or trouble understanding simple statements. ? Sudden problems with walking or balance. ? A sudden, severe headache that is different from past headaches. Call your doctor now or seek immediate medical care if: ? Your symptoms start to return. ? You get new headaches. ? You have nausea or heartburn. ? You have side effects of your steroid medicine, such as: ? Weight gain. ? Mood changes. ? Trouble sleeping. ? Bruising easily. Watch closely for changes in your health, and be sure to contact your doctor if: ? You do not get better as expected. Where can you learn more? Visit our health information library at [email or web address] You can also view health information on [employer], your personal patient account. Log in or sign up today. Enter M841 in the search box to learn more about Temporal Arteritis: Care Instructions. Current as of: January 16, 2020?Content Version: 12.9 ?? [employer]. Care instructions adapted under license by [facility]. If you have questions about a medical condition or this instruction, always ask your healthcare professional. [employer] disclaims any warranty or liability for your use of this information. documented in this encounter Progress Notes Sourav Knox MD - 03/05/2021 11:00 AM EDT Rheumatology Outpatient Consultation Note Reason for Consult: The patient is seen at the request of Kinga Zhang for evaluation and treatment of possible recurrence of polymyalgia rheumatica. History of Present Illness: Donna Leggett is a 66 y.o. female with medical history notable for prior episodes of suspected polymyalgia rheumatica, migraine headaches, and recently diagnosed osteoporosis who presents today for evaluation of polymyalgia rheumatica. Donna states that she was previously diagnosed with polymyalgia rh eumatica by Dr. Dick at [facility] approximately 10 years ago. Most recently she had this diagnosis given again by her primary care provider Kinga Zhang. Symptoms started in June with pain in her shoulders and hips. She found it very uncomfortable to try to roll over in bed. The symptoms had relatively sudden onset. She had vaccination with her first Moderna vaccine in early June. Joint symptoms started shortly thereafter. Her second vaccination was in early July. 09/03/2020 ESR was 39. Subsequent testing 10/15/2020 showed ESR 5 and CRP less than 0.05. She had started prednisone at 15 mg daily and took this for a few weeks yet due to the fact that her symptoms were not improving she was then placed on 20 mg daily for approximately 1 month. She decreased to 15 mg for 2 weeks and then subsequently to 12.5 mg. She has been decreasing at 2-week intervals. She is now on 5 mg of prednisone daily and has been on this for approximately 2 weeks. She is due to go to 4 mg daily in the morning. No recent inflammatory test other than that october. She is not reporting any pain in her shoulders or hips. She does report that her hands are feeling stiff especially in the CMC joints. She was recently started on alendronate 70 mg weekly. ROS: General (-)fevers, (-)chills, (-)night sweats, (-)wt loss/gain. HEENT (-)inflammatory eye disease, (-)vision loss, (-)epistaxis, (-)bleeding gums, (-)oral ulcers, (-)dry eyes, (-)dry mouth, (-)dysphagia, (-)GERD, (-)photo sensitivity. No temporal artery tenderness.No scalp tenderness. No jaw claudication. CVS (-)chest pain, (-)palpitations Pulm (-)shortness of breath, (-)YU, (-)wheezes, (-)cough, (-)pleuritic pain GI (-)N/V, (-)abdominal pain, (-)hematochezia. No odynophagia (-)hematuria, (-)dysuria MS (-)muscle weakness, (-)paralysis, (-)joint pain Endo (-)thyroid disorders, (-)diabetes Neuro (-)focal weakness, (-)paresthesias, (-)gait instability. She does get headaches. She has had migraines for quite some time. Recently switched from Imitrex. Skin (-)Raynaud's, (-)rashes - no psoriasis Psych (-) mood disorder. Vascular: Symmetric upper and lower extremity pulses. No abdominal bruits. MSK: Morning stiffness less than 30 minutes. She does have joint pain involving shoulders and hips though not so much right now. Family Hx: No family history of autoimmune systemic connective tissue disease. She has 3 siblings. She has 2 children. Son has hypertension. Daughter has anxiety. 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 She is . 3 caffeinated beverages per day. Non-smoker. Has a couple of alcoholic beverages per month. No illicit or recreational druguse. She exercises regularly walking and weightlifting. She does this 6 days a week. She sleeps 7 or8 hours per night. Activities of daily living: She currently describes her situation most the time as well. Her only limitations are using her hands to grasp small objects. Physical Examination: BP 133/70 Pulse 74 Temp 36.9 ??C (98.4 ??F) (Temporal) Ht 166.4 cm (5' 5.5) Wt 65.8 kg (145lb) SpO2 100% BMI 23.76 kg/m?? General: Alert and oriented. No distress. Pleasant and interactive. Wearing facial covering HEENT: Anicteric sclera. Clear conjunctiva. No oral lesions. No facial rash. No temporal artery tenderness. No scalp tenderness Skin: (-)ulcers, (-)rash Neck: No lymphadenopathy or thyromegaly Cardiovascular: RR, (-)murmurs, rubs, or gallops. Lungs: Clear to auscultation bilaterally. (-)R/R/W Neuro: Alert and oriented x3. Cranial nerves II through XII intact. Strength 5/5 throughout. Gait normal Extremities: Shoulders: FROM Elbows:FROM, no synovitis (-)nodules Wrists: No synovitis. Normal flexion extension Hands: No synovitis, no MCP compression tenderness. Normal nailfold capillaries on capillaroscopy. No nail pitting Hips: FROM Knees: (-)effusions, non-tender ROM Ankles: FROM, non-tender, no swelling Feet: no MTP compression tenderness, no toe splaying Laboratory Data: 09/03/2020: Calcium 9.2. Glucose 94. BUN 12. Creatinine 0.7. Uric acid 3.9. Total protein 7.5. Albumin 3.8. Total bilirubin 0.5. Alkaline phosphatase 96. Sodium 139. Potassium 4.2. Chloride 102. CO2 27.1. AST 16. ALT 22. C-reactive protein 0.09. Rheumatoid factor less than 8.6 Studies: None pending Impression: Donna Leggett is a 66 y.o. female who presents today with what appears to be treated polymyalgia rheumatica without giant cell arteritis. We spent a good part of the appointment discussing the entity of giant cell arteritis and its occasional association with polymyalgia rheumatica. Specifically we discussed symptoms which would prompt an emergent visit to the emergency room including visual changes, changes in headache pattern associated with temporal artery tenderness or scalp tenderness, jaw claudication, extremity claudication. She is currently on 5 mg of prednisone and has been able to tolerate a taper currently at 1 mg every 2 weeks. She is due to decreased to 4 mg tomorrow. I have asked her to wait until we ascertain the results of her inflammatory marker testing. We also discussed that polymyalgia rheumatica can sometimes recur. There are also times when people present with the appearance of polymyalgia rheumatica and end up transitioning into rheumatoid arthritis. I would certainly like to keep a close eye on her hand symptoms as we are tapering prednisone. On examination was not able to detect any synovitis. It may well be that her symptoms are due to osteoarthritis especially due to the fact that the basilar joints are most symptomatic. Thank you very much for referring Donna to [facility] Rheumatology. Please feel free to contact me if you have any further questions or concerns regarding her evaluation. Recommendations: ? Hold prednisone at 5 mg until tests of inflammation are reviewed. ? Monitor for signs and symptoms of giant cell arteritis. CC: Kinga Zhang Please note that this note was completed with the assistance of voice recognition software. As result unintentional autocad designer errors and/or typographical mistakes are possible. If you notice errorsplease bring them to my attention. If any area requires explanation or clarification please do not he sitate to contact me. 80 minutes total spent on this visit including precharting, review of laboratory, and notes from other providers, [id number] interaction, and documentation. documented in this encounter Plan of Treatment Scheduled Orders Name Type Priority Associated Diagnoses Order S chedule Cyclic Citrullinated Lab Routine Polymyalgia rheumati ca Expected: 03/05/2021, Peptide Expires: 2021 Sedimentation rate Lab Routine Polymyalgia rheumatica Expected: 03/05/2021, Expires: 2021 documented as of this encounter Visit Diagnoses Diagnosis Polymyalgia rheumatica documented in this encounter Care Teams Production Clerks Supervisor Relationship Specialty Start Date End Date Kinga Zhang MD PCP - General Family Medicine 09/07/[address] [place] [address] [address] [place] [address] documented as of this encounter
--- OUTSIDE RECORDS SUMMARY | 2021-12-08 13:01 | XMS_ITS | Encounter Summary ---
:1955 Author Organization [facility] Address [address] [place] [address] Care Team Providers Name Role Phone Unknown, Provider Primary Care Provider Encounter Details Date Type Department Care Team Description 01/28/2021 Lab Requisition [facility] Outr Resulting Lab, Pathology & Laboratory Provider [facility] [address] [place] [address] Social History Tobacco Use Types Packs/Day Years Used Date Never Assessed Sex Assigned at Date Recorded Not on file documented as of this encounter Plan of Treatment Not on filedocumented as of this encounter Procedures Procedure Name Priority Date/Time Associated Diagnosis Comme nts COVID-19 TEST [facility] Today 01/28/2021 8:10 EDT LAB PCR COVID-19 TESTING Routine 01/28/2021 8:10 EDT Resu lts for this procedure are i n the results section. documented in this encounter Results COVID-19 TEST [facility] LAB PCR (01/28/2021 8:10 EDT) Specimen Swab - Entire nasopharynx (body structur e) Performing Organization Address City/State/ZIP Code Phon e Number [facility] [address] [place] [address] SERVICES COVID-19 TESTING (01/28/2021 8:10 EDT) COVID-19 rt-PCR Negative Negative [facility] Result Comment: [facility] This test [...] and epidemiological informatio n. Performed on the ADARTISher Fusion instrument Performing Lab Jet [facility] Lab [facility] SERVICES Specimen Swab Performing Organization Address City/State/ZIP Code Phon e Number [facility] [address] [place] [address] SERVICES documented in this encounter Visit Diagnoses Not on filedocumented in this encounter Care Teams Administrator Health Care Facility Relationship Specialty Start Date End Date Unknown, Provider, PCP - General 04/18/15 documented as of this encounter
--- OUTSIDE RECORDS SUMMARY | 2021-12-08 13:01 | XMS_ITS | Encounter Summary ---
:1955 Author Organization [facility] Address [address] [place] [address] Care Team Providers Name Role Phone Unknown, Provider Primary Care Provider Encounter Details Date Type Department Care Team Description 09/18/2018 Results Only [facility] Radha Chavez, [address] [place], [place] [id number] (Wo rk) Social History Tobacco Use Types Packs/Day Years Used Date Never Assessed Sex Assigned at Date Recorded Not on file documented as of this encounter Plan of Treatment Not on filedocumented as of this encounter Procedures Procedure Name Priority Date/Time Associated Diagnosis Comme [facility] SURGICAL PATHOLOGY Routine 09/18/2018 22:17 Resul ts for this EDT procedure are i n the results section. documented in this encounter Results SURGICAL PATHOLOGY (09/18/2018 22:17 EDT) Pathology Report: SURGICAL PATHOLOGY REPORT [facility] Reports generated via electronic interface contain yvonne ginal data; LABORATORY however they are lacking the format of the original re port. SERVICES Caution should be taken when reading/interpreting unfo rmatted reports. Name: ? DONNA LEGGETT ? Accession #: ? [id number] ? : ? 1955 (Age: 63 ) ??F ? Collect Date: ? 09/18/2018 ? Location: ? [facility] ? Receive Date: ? 9 ? Provider: RADHA CHAVEZ DO Copy to: SHERRY RIDDLE MD ? Final Pathologic Diagnosis: SKIN OF NASOLABIAL FOLD, SHAVE BIOPSY: - Melanocytic nevus, intradermal type. - Lesion extends to base of biopsy specimen. Document reviewed and electronically signed by: KLAUS LYONS MD Report ??Date: 09/19/2018 16:30 By the signature above, the attending physician certif ies that he/she has personally conducted a gross and/or microscopic examin ation of the described specimens and rendered or confirmed the above diagnosi s. Specimen(s) Received: Left nasolabial fold Clinical History: Fax results to ; clinical diagnosis code: ??D49.9 Gross Description: ? Received in formalin labelled with proper patient identification (initials G, P) and not otherwise specified is a 0.2 x 0.2 x 0.1 cm circular shave of granular negrete skin. The luigi in is inked blue. The specimen is submitted in toto in 1. MIGUEL Urban (ASCP) 09/19/2018 8:09 AM End of Report Specimen Performing Organization Address City/State/ZIP Code Phon e Number [facility] [address] [place] [address] SERVICES documented in this encounter Visit Diagnoses Not on filedocumented in this encounter Care Teams Sparmaker Relationship Specialty Start Date End Date Unknown, Provider, PCP - General 04/18/15 documented as of this encounter
--- OUTSIDE RECORDS SUMMARY | 2021-12-08 13:01 | XMS_ITS | Encounter Summary ---
:1955 Author Organization [facility] Address [address] [place] [address] Care Team Providers Name Role Phone Unknown, Provider Primary Care Provider Encounter Details Date Type Department Care Team Description 09/17/2016 Results Only [facility]ry Flores MD [phone] [place] [id number] (Wo rk) Social History Tobacco Use Types Packs/Day Years Used Date Never Assessed Sex Assigned at Date Recorded Not on file documented as of this encounter Plan of Treatment Not on filedocumented as of this encounter Procedures Procedure Name Priority Date/Time Associated Diagnosis Comme nts PAP TEST- RESULT Routine 09/17/2016 0:00 EDT Resu lts for this ONLY procedure are i n the results section. documented in this encounter Results PAP TEST- RESULT ONLY (09/17/2016 0:00 EDT) Pathology Report: CYTOPATHOLOGY REPORT [facility] Reports generated via electronic interface contain yvonne ginal data; SERVICES however they are lacking the format of the original re port. Caution should be taken when reading/interpreting unfo rmatted reports. Name: ? DONNA LEGGETT ? Accession #: ? [id number] : ? 1955 (Age: 61) ??F ?Collect Date: ? 2016 Location: ? [facility] ? Receive Date : ? 09/21/2016 Provider: ?SHERRY RIDDLE MD Copy to: ? Specimen/Source: ? Pap Test, Cervix, ThinPrep Imaging System with manual evaluation Last Menstrual Period: ? Menstrual/ Status: ? Post Menopausal Hormonal/Contraceptive Status: ? None Other: ? Adventure Challenge Instructor Clinical/Treatment Hx - None ? SPECIMEN ADEQUACY ? Unsatisfactory for Evaluation, - insufficient numbers of squamous epith elial cells (less than 10% of expected cellularity) - obscuring contamination, possibly lubricant GENERAL CATEGORIZATION ? Specimen processed and examined, but unsatisfac tory for evaluation of epithelial abnormality. ??Recommend repe at Pap test in 2-4 months as stated in ASCCP's 2012 Updated Consensus Guidelines. ? Document reviewed and electronically signed by: ? TOÑO Miranda(ASCP)(IAC) ? Report Date: ??09/22/2016 15:30 End of Report Specimen Performing Organization Address City/State/ZIP Code Phon e Number [facility] [address] [place] [address] SERVICES documented in this encounter Visit Diagnoses Not on filedocumented in this encounter Care Teams Contractor [employer] Threshing Relationship Specialty Start Date End Date Unknown, Provider, PCP - General 04/18/15 documented as of this encounter
--- OUTSIDE RECORDS SUMMARY | 2021-12-08 13:01 | XMS_ITS | Encounter Summary ---
:1955 Author Organization [place] [address] Care Team Providers Name Role Phone Kinga Zhang MD Primary Care Provider Encounter Details Date Type Department Care Team Description 05/14/2021 TH Visit Rheumatology at [facility] [place] [place] Sourav Knox, Polymyalgia (TeleHealth) [facility] [place] [address] [facility] [phone] RHEUMATOLOGY [place] [id number] Social History Tobacco Use Types Packs/Day Years Used Date Former Smoker Smokeless Tobacco: Never Used Sex Assigned at Date Recorded Female 05/14/2021 11:47 AM EST documented as of this encounter Progress Notes Sourav Knox MD - 05/14/2021 1:00 PM EST Rheumatology Outpatient Consultation Note This is a telemedicine visit that was performed with the originating site at that patients home address (please see electronic health record for applicable address) and the distant site at my [facility] [place] [place] office. Verbal consent to participate in video visit was obtained by Sourav Knox MD or the rooming customer relations assistant as documented in their note. This visit occurred during the Coronavirus (COVID-19) Public Health Emergency. I discussed with the patient the nature of our telemedicine visits, that: ??? I would evaluate the patient and recommend diagnostics and treatments based on my assessment ??? Our sessions are not being recorded and that personal health information is protected ??? Our team would provide follow up care in person if/when the patient needs it The concept of ???Telemedicine?? has been described to the patient. Patient has been informed of the anticipated benefits and possible risks. Patient understands the information provided regarding telemedicine, has had the opportunity to ask questions about this information, and all questions have been answered to patient's satisfaction. Patient consents for the use of telemedicine in his/her medical care and authorizes the transmission of any relevant medical information to providers and their staff involved in patient's medical or mental health care. Reason for Consult: The patient is seen [...] polymyalgia rh eumatica by Dr. Dick at [facility] approximately 10 years ago. Most recently she [...] recently started on alendronate 70 mg weekly. 05/14/2021 interval events: [facility] visit with [facility] 03[facility]/20[facility]. She is currently on 1 mg of prednisone and has been on this for 3 weeks. Last CRP was less than 0.05. ESR 6. CCP antibody negative. Feeling pretty well overall. She has noted some minor decline in visual acuity though nothing monocular or abrupt or associated with any headache pain. No GCA symptoms. ROS: General (-)fevers, (-)chills, (-)night sweats, (-)wt [...] MSK: Morning stiffness less than 30 minutes. Family Hx: No family history of autoimmune systemic connective tissue disease. She has 3 siblings. She has 2 children. Son has hypertension. Daughter has anxiety. 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 She is . 3 caffeinated beverages per [...] hands to grasp small objects. Physical Examination: There were no vitals taken for this visit. Telemedicine visit Alert. Oriented. No distress. Not toxic. Appropriate speech thought and content Laboratory Data: 09/03/2020: Calcium 9.2. Glucose 94. BUN 12. Creatinine 0.7. Uric acid 3.9. Total protein 7.5. Albumin 3.8. Total bilirubin 0.5. Alkaline phosphatase 96. Sodium 139. Potassium 4.2. Chloride 102. CO2 27.1. AST 16. ALT 22. C-reactive protein 0.09. Rheumatoid factor less than 8.6 Impression: Donna Leggett is a 66 y.o. female who presented with what appeared to be treated polymyalgia rheumatica without giant cell arteritis. We previously discussed symptoms which would prompt an emergent visit to the emergency room including visual changes, changes in headache pattern associated with temporal artery tenderness or scalp tenderness, jaw claudication, extremity claudication. She is currentlyon 1 mg of prednisone and has been able to tolerate a taper currently at 1 mg every 2 weeks. I thinkshe is set to discontinue prednisone. I have recommended taking 1 mg of prednisone every other day for 1 week and then stopping. I have written laboratory orders for CRP and ESR to be sent to [facility]. We also previously discussed that polymyalgia rheumatica can sometimes recur. [...] that the basilar joints are most symptomatic. Recommendations: ? Continue to taper off of prednisone and recheck inflammatory markers. ? Monitor for signs and symptoms of giant cell arteritis. CC: Kinga Zhang Please note that this note was completed with the assistance of voice recognition software. As result unintentional roll repairer errors and/or typographical mistakes are possible. If you notice errorsplease bring them to my attention. If any area requires explanation or clarification please do not he sitate to contact me. 33 minutes total spent on this visit including precharting, review of laboratory, and notes from other providers, [id number] interaction, and documentation. documented in this encounter Plan of Treatment Scheduled Orders Name Type Priority Associated Diagnoses Order S chedule Sedimentation rate Lab Routine Polymyalgia rheumatica Expected: 05/14/2021, Expires: 2021 CRP, acute inflammation Lab Routine Polymyalgia rheum atica Expected: 05/14/2021, Expires: 2021 documented as of this encounter Visit Diagnoses Diagnosis Polymyalgia rheumatica documented in this encounter Care Teams Drawstring Knotter Relationship Specialty Start Date End Date Kinga Zhang MD PCP - General Family Medicine 09/07/[address] [place] [address] documented as of this encounter
--- OUTSIDE RECORDS SUMMARY | 2021-12-08 13:01 | XMS_ITS | Encounter Summary ---
:1955 Author Organization [facility] [place] [address] Care Team Providers Name Role Phone Kinga Zhang MD Primary Care Provider Reason for Visit Reason Comments Follow-up Skin Check Consultation (Routine) - Specialty Diagnoses / Procedures Referred By Contact Refer red To Contact Dermatology Diagnoses Disorder of the skin and subcutaneous tissue, unspecified skin lesion of left leg Kinga Zhang MD Hammer, Charles J, MD Procedures Consult [address] DERMATOLOGY [place], [place] [address] [address] [place] [address] Fax: Referral ID Status Reason Start Date Expiration Date Visits V isits Requested Authorized [id number] 09/07/2018 09/07/2019 1 1 Encounter Details Date Type Department Care Team Description 12/08/2018 Office Visit Dermatology at [facility]; Marco A CROWDER Seborrheic keratosis [address] [place] [address] DERMATOLOGY [place], [place] [id number] [phone] Social History Tobacco Use Types Packs/Day Years Used Date Never Smoker Smokeless Tobacco: Never Used Sex Assigned at Date Recorded Female 05/14/2021 11:47 AM EST documented as of this encounter Progress Notes [facility] Otero MD - 12/08/2018 3:15 PM EDT Problem: 1. Skin checkup 2. No prior history of skin cancer or melanoma Donna follows up and is now 63. She retired in June from [employer]. She is enjoying long term and would like to have a general skin checkup. Dr. Zhang recommended having a lesion on the left medial knee checked. Physical examination reveals a pleasant 63-year-old woman who has an early seborrheic keratosis withcentral hyperkeratosis and peripheral hyperpigmentation on the left medial knee. Otherwise examination of the face the neck the chest the back the hands the arms forearms the thighs and the calves and soles of feet is benign. She has a number of small seborrheic keratoses developing on the shins and back. She has a number of benign solar lentigos on the dorsal forearms bilaterally. Assessment and plan: Benign skin examination 1. Reassured the patient about today's benign skin examination 2. Continue sun with precautions 3. Return to clinic here as needed for new lesions concerns 4. Discussed the desirability of a skin checkup every 3 to 5 years. Patient will call and make her own appointment CC: Elvira Zhang MD documented in this encounter Plan of Treatment Not on filedocumented as of this encounter Visit Diagnoses Diagnosis Solar lentigo Other dyschromia Seborrheic keratosis Other seborrheic keratosis documented in this encounter Care Teams Automatic Pinsetter Adjuster Relationship Specialty Start Date End Date Kinga Zhang MD PCP - General Family Medicine 09/07/[address] [place] [address] [address] [place] [address] documented as of this encounter
--- OUTSIDE RECORDS SUMMARY | 2021-12-08 13:01 | XMS_ITS | Encounter Summary ---
:1955 Author Organization [facility] Address [address] [place] [id number] Care Team Providers Name Role Phone Unknown, Provider Primary Care Provider Encounter Details Date Type Department Care Team Description 09/18/2018 Hospital Encounter [facility] [place] Unknown, Provider, [facility] [address] [place] [address] [place] [address] (Work) [phone] Social History Tobacco Use Types Packs/Day Years Used Date Never Assessed Sex Assigned at Date Recorded Not on file documented as of this encounter Discharge Disposition Disposition Code Departure Means Destination Home or Self Residential documented in this encounter Plan of Treatment Not on filedocumented as of this encounter Visit Diagnoses Not on filedocumented in this encounter Care Teams Hadoop Engineer Relationship Specialty Start Date End Date Unknown, Provider, PCP - General 04/18/15 documented as of this encounter
[2021-12-08 15:37] LABS: ESR 9 mm/hr (0-30)
[2021-12-08 16:16] LABS: Anion Gap 7.5 mmol/L (3-11); BUN 15 mg/dL (7-18); C-Reactive Protein 0.09 mg/dL (0.0-0.3); CO2 26.5 mmol/L (21.0-32.0); CREATININE 0.7 mg/dL (0.55-1.02); Calcium 8.7 mg/dL (8.5-10.1); Chloride 105 mmol/L (98-107); Glucose 109 mg/dL (74-106); Potassium 4.1 mmol/L (3.5-5.1); Sodium 139 mmol/L (136-145)
[2021-12-09 10:10] LABS: Parathyroid Hormone,Intact 92 pg/mL (19-88)
[2021-12-10 05:27] LABS: Vitamin D 25 Total 40.1 ng/mL (30-100)
== END 2021-12-08 12:39 | disposition home or self-care (01) ==
PROVIDERS: PCP Family Medicine; Visit Provider Family Medicine
DX: Z00.00 Encounter for general adult medical examination without abnormal findings (principal); M81.0 Age-related osteoporosis without current pathological fracture; M35.3 Polymyalgia rheumatica
CPT/HCPCS: 36415; 80048; 82306; 85652; 83970; 86140

== ENCOUNTER 2021-12-30 01:40 | Outpatient (CLI) | payer OTHER, SELFPAY ==
[2022-01-01 12:36] LABS: Beta-CrossLaps (B-CTx) 361 pg/mL
== END 2021-12-30 01:41 | disposition home or self-care (01) ==
LOC: LBO 01:40
PROVIDERS: PCP Family Medicine
DX: M35.3 Polymyalgia rheumatica (principal); Z01.818 Encounter for other preprocedural examination; Z01.812 Encounter for preprocedural laboratory examination; Z79.83 Long term (current) use of bisphosphonates
CPT/HCPCS: 36415; 82523

== ENCOUNTER 2022-12-27 04:26 | Outpatient (CLI) | payer OTHER, SELFPAY ==
[2022-12-27 07:44] LABS: Anion Gap 7.6 mmol/L (3-11); BUN 13 mg/dL (7-18); CO2 28.4 mmol/L (21.0-32.0); CREATININE 0.7 mg/dL (0.55-1.02); Calcium 8.5 mg/dL (8.5-10.1); Calculated LDL 67 mg/dL (<100); Chloride 107 mmol/L (98-107); Cholesterol 145 mg/dL (<200); Estimated GFR 93.56 (mL/min/1.73m2); Glucose 97 mg/dL (74-106); HDL Cholesterol 70 mg/dL (40-60); Potassium 3.9 mmol/L (3.5-5.1); Sodium 143 mmol/L (136-145); Triglyceride 41 mg/dL (<150)
[2022-12-28 10:09] LABS: Parathyroid Hormone,Intact 53 pg/mL (19-88)
== END 2022-12-27 04:27 | disposition home or self-care (01) ==
LOC: LBO 04:27
PROVIDERS: PCP Family Medicine; Visit Provider Family Medicine
DX: M81.0 Age-related osteoporosis without current pathological fracture (principal); Z13.6 Encounter for screening for cardiovascular disorders; I10 Essential (primary) hypertension
CPT/HCPCS: 36415; 80048; 80061; 83970

== ENCOUNTER 2023-01-04 01:58 | Outpatient (CLI) | payer OTHER, SELFPAY | END 2023-01-04 02:18 | PROVIDERS: PCP Family Medicine; Visit Provider Family Medicine | DX: Z12.31 Encounter for screening mammogram for malignant neoplasm of breast (principal) | CPT/HCPCS: 77063; 77067 ==

== ENCOUNTER 2024-12-05 00:23 | Outpatient (CLI) | payer MEDICARE, SELFPAY ==
--- NOTE | 2024-12-05 11:20 | DI.MAMMO_ITS ---
Exam(s) MAMMO SCREENING EXAM: MAMMO SCREENING CLINICAL HISTORY: screening,z12.39 TECHNIQUE: Mammograms were interpreted according to the usual protocol including computer analysis with CAD system, tomosynthesis and C-view imaging. COMPARISON: 2016 through 2022 FINDINGS: The breasts are composed of scattered fibroglandular densities, Breast Density category B. No suspicious masses or suspicious microcalcifications are seen. No skin thickening or abnormal axillary lymph nodes are seen. There has been no significant change from prior exams. IMPRESSION: BI-RADS Category 1, Negative mammogram Yearly screening mammography is recommended. Breast Density - Category B - There are scattered areas of fibroglandular density. Breast density Category C or D implies that the patient has dense breast tissue. Dense breast tissue can make it harder to find cancer on a mammogram. Dense breast tissue is also associated with an increased risk of breast cancer. This information about the result of the mammogram report was provided to the patient to raise their awareness. Use this report when you speak with the patient about their risks for breast cancer, which includes their family history. At that time, you may recommend additional screening tests (Ultrasound or MRI) as these tests may add significant information. A negative radiographic report should not delay biopsy if a dominant or clinically suspicious mass is present. Up to ten percent of cancers are not identified on mammography. A negative report may reinforce clinical impression. Adenosis and dense breasts may obscure an underlying neoplasm. False positive reports average 6 to 10%. Patient will receive a letter notifying them of these results.
== END 2024-12-05 00:43 ==
LOC: DI 00:23
PROVIDERS: PCP Family Medicine; Visit Provider Family Medicine
DX: Z12.31 Encounter for screening mammogram for malignant neoplasm of breast (principal); R92.323 Mammographic fibroglandular density, bilateral breasts
CPT/HCPCS: 77063; 77067

== ENCOUNTER 2025-02-14 09:36 | Outpatient (CLI) | payer MEDICARE, SELFPAY ==
--- NOTE | 2025-02-14 06:45 | DI.DEXA_ITS ---
Exam(s) XR DEXA BONE DENSITY W/WO JAJA EXAM: XR DEXA BONE DENSITY W/WO JAJA CLINICAL HISTORY: hx osteoporosis,MENOPAUSAL DISORDER,M81.0,N95.9 TECHNIQUE: COMPARISON: CR XR DEXA BONE DENSITY W/WO JAJA from 09/17/2020 FINDINGS: Lateral Spine Image: Unremarkable. No compression deformities identified. Left hip: Total T-Score: -2.2. This compares to -2.3 on the prior examination. Total Z-Score: -0.6 T- and Z-scores: Note is made of osteoporosis in the femoral neck with a T-score of -2.5. Lumbar Spine: Total T-Score: -2.2. This compares to -2.5 on the prior examination. Total Z-Score: 0.0 T- and Z-scores: Note is made of osteoporosis in the L1 vertebral body with a T- score of -3.1. There is osteoporosis in the left forearm with a total T-score of -4.5 and Z- score of -2.3. IMPRESSION: Osteoporosis is present.
== END 2025-02-14 09:56 ==
LOC: DI 09:37
PROVIDERS: PCP Family Medicine; Visit Provider Family Medicine
DX: N95.9 Unspecified menopausal and perimenopausal disorder (principal); M81.0 Age-related osteoporosis without current pathological fracture
CPT/HCPCS: 77080